=== PATIENT | male | born 1975 | race Caucasian/White ===

== ENCOUNTER 2021-05-06 09:42 | Emergency (ER) | payer MEDICAID, SELFPAY ==
--- NOTE | 2021-05-06 09:46 | USCV_ITS ---
NessaMiki Age: 45 Gender: M : 1975 Exam Date: 05/06/2021 09:52 Ordering Phys: Darling Toussaint Technologist: Elisa Singh [place] [facility] [place]: LLE PAIN AND SWELLING HISTORY: History of deep venous thrombosis. Pt is taking blood thinners for a few months now. PROCEDURES: Venous duplex imaging was performed in only the left lower extremity. The following venous structures were evaluated: common femoral vein, profunda vein, proximal portion of the greater saphenous vein, superficial femoral vein, and the popliteal vein. In addition, the posterior tibial and peroneal trunk were evaluated. FINDINGS: There appears to be partial thrombus present in the Lt SFV prox, mid, and distal, the Lt popliteal and peroneals. All other veins imaged appear compressible and free of thrombus at this time. CONCLUSIONS Partial non occlusive thrombus Left SFV, popliteal and peroneal veins. History of prior thrombus. Remainder of LLE veins are patent 2.6cm lymph node proximal left thigh, non specific but may be reactive. James Monsivais MD (Electronically Signed) Final Date: 06 May 2021 17:33 S
[2021-05-06 10:58] VITALS: BP 132/70; PULSE 62; RESP 14; TEMP 36.4; O2SAT 99; BMI 26.4
[2021-05-06 11:34] VITALS: BP 146/89; PULSE 84; RESP 16; O2SAT 97
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
[2021-05-06 12:02] VITALS: BP 124/76; PULSE 73; RESP 18; O2SAT 99
== END 2021-05-06 14:43 | disposition home or self-care (01) ==
PROVIDERS: Emergency Provider Physician Assistant
DX: F17.210 Nicotine dependence, cigarettes, uncomplicated (principal); M79.605 Pain in left leg
CPT/HCPCS: 93971; 99283

== ENCOUNTER 2022-06-27 09:07 | Inpatient (IN) | payer MEDICAID, SELFPAY ==
[2022-06-27] VITALS (10 sets, daily range): BP systolic 94–131; BP diastolic 62–87; PULSE 52–74; RESP 16–20; TEMP 36.5–37; O2SAT 92–99; BMI 32.5
--- NOTE | 2022-06-27 09:16 | ECG_ITS ---
[facility] Test Date: 2022-06-27 Pat Name: Miki Szymanski Department: Room: Gender: Male [employer] Coordinator: : 1975 Requested By: Joann Whittaker Order Number: [id number] Gisell MD: Alfonso Saldivar M.D. Measurements Intervals [place] Rate: 76 P: 25 NV: 144 QRS: 40 QRSD: 102 T: 45 QT: 384 QTc: 432 Interpretive Statements SINUS RHYTHM No previous ECG available for comparison Electronically Signed On 06-27-2022 14:38:28 [employer] by Alfonso Saldivar M.D. [id number]
[2022-06-27 09:25] LABS: Add Urine Microscopic? NO; Charge for UA Resulting for Rev
[2022-06-27 09:29] LABS: Basophils # 0.1 10^3/uL (0.0-0.1); Basophils % 0.6 %; Eosinophils # 0.5 10^3/uL (0.0-0.8); Eosinophils % 4.7 %; Hematocrit 42.4 % (42.0-52.0); Lymphocytes # 2.4 10^3/uL (0.8-4.8); Lymphocytes % 25.3 %; Mean Corpuscular Hemoglobin 35.2 pg (28.0-34.0); Mean Corpuscular Volume 106.5 fl (80-94); Monocytes # 0.9 10^3/uL (0.2-0.9); Neutrophils # 5.68 10^3/uL (1.8-7.7); Neutrophils % 59.9 %; Nucleated Red Blood Cells % 0 %; Platelet Count 192 10^3/cmm (130-400); Red Blood Count 3.98 10^6/uL (4.1-5.3); Red Cell Distribution Width 16.4 % (12.1-15.1); White Blood Count 9.5 10^3/uL (4.0-10.0)
[2022-06-27] MEDS: sodium chloride 0.9% 1,000 ML 999 ML IV (09:32)
--- NOTE | 2022-06-27 09:32 | ED_ITS ---
Documented by User: CITLALI Hughes 06/28/22 07:14 HPI - Altered Mental Status General: Chief Complaint: Altered Mental Status Stated Complaint: AMS Time Seen by Provider: 06/27/22 09:17 History of Present Illness: Patient is a 47-year-old male that comes to the ED via EMS for altered mental status. Patient was at [facility] and going through alcohol detox. He started his detox at [facility] 4 days ago on June 23. For the past couple days he has been having a lot of anxiety, hand tremors, panic attacks, diaphoresis, nausea/vomiting, confusion and visual hallucinations. Patient says he keeps seeing little green men. He also reports having a difficult time controlling his arms and legs. Denies any seizure activity. He states he has a history of alcohol abuse and has been drinking for a little over 30 years. He drinks over 1/5 of whiskey a day. He denies any history of DTs or any seizures during past detox episodes. He states that this detox episode is the worst he has experienced. Denies any SI or HI. Ambulance started patient on fluids and given a dose of Zofran while in route to the ED. Associated symptoms: Reports visual hallucinations; Deny homicidal ideation or suicidal ideation Review of Systems Const: Reports: night sweats and diaphoresis; Denies: fever(s), chills or fatigue Eyes: Denies: change in vision or eye discomfort ENMT: Denies: throat pain, odynophagia, nasal discharge or nasal congestion Card: Denies: chest pain, palpitations, edema, swelling of feet/ankles, dyspnea on exertion or orthopnea Resp: Denies: dyspnea, productive cough or non-productive cough GI: Reports: nausea and vomiting; Denies: abdominal pain, diarrhea, constipation or hematochezia : Denies: flank pain, difficulty urinating, dysuria or hematuria Musc: Denies: neck pain, back pain or extremity swelling Skin/Breast: Denies: rash or new lesions Neuro: Denies: headache(s), numbness in extremities or weakness in extremities Psych: Reports: anxiety and visual hallucinations; Denies: suicidal ideation or homicidal ideation [facility] ED PFSH: Medical History Alcohol abuse COPD (chronic obstructive pulmonary disease) Depression DVT (deep venous thrombosis) GERD (gastroesophageal reflux disease) Hyperlipidemia Hypertension No pertinent family history Family History Other Cancer Social History Smoking and tobacco status: current every day smoker Alcohol intake: current Physical Exam Const: COMMON NORMALS: alert ORIENTATION/CONSCIOUSNESS: Yes oriented to person and Yes oriented to place HENMT: COMMON NORMALS: normocephalic HEAD & SCALP: normocephalic MOUTH: Normal oral and palatal mucosa present THROAT: posterior oropharynx normal and uvula midline Eye: COMMON NORMALS: Equal, round and reactive pupils present and EOMs intact bilaterally GENERAL EYE: appearance normal, both eyes and all related structures PUPIL: Yes Equal, round and reactive pupils present Neck/C-Spine: COMMON NORMALS: supple GENERAL: Yes normal visual inspection Lymph: LYMPHATIC: no lymphadenopathy noted Resp: COMMON NORMALS: normal respiratory effort, No retractions, No use of accessory muscles and clear to auscultation bilaterally AUSCULTATION: clear to auscultation bilaterally Cardio: COMMON NORMALS: regular rate, regular rhythm, S1 normal heart sound present, S2 normal heart sound present, No gallops present (Cardio), No clicks present (Cardio), No murmurs present (Cardio) and Peripheral pulses 2+ throughout RATE: regular rate RHYTHM: regular rhythm HEART SOUNDS: S1 normal heart sound present and S2 normal heart sound present PERIPHERAL PULSES: Peripheral pulses 2+ throughout GI: COMMON NORMALS: Normal to inspection, nondistended, normoactive bowel sounds present, Soft to palpation, non-tender and no masses PALPATION: Yes Soft to palpation : COMMON NORMALS: Yes no CVA tenderness BLADDER/KIDNEY EXAM: Yes no CVA tenderness Back/Pelvis: COMMON NORMALS: no CVA tenderness Extremity: GENERAL: Yes normal exam except as noted Neuro: COMMON NORMALS: moves all extremities SENSORIUM/ORIENTATION: Yes alert, Yes oriented to person, Yes oriented to place and Yes Orientation impaired (Patient had trouble answering time questions.) Psych: THOUGHT CONTENT: Yes Hallucination(s) present visual (He sees little green men) Skin: COMMON NORMALS: no rashes or lesions noted GENERAL SKIN EXAM: no rashes or lesions noted and dry skin Course Vital Signs: Vital signs: Vital Signs Temperature 97.4 F L 06/28/22 11:11 Pulse Rate 79 06/28/22 11:11 Respiratory Rate 18 06/28/22 11:11 Blood Pressure 117/68 06/28/22 11:11 Pulse Oximetry 96 06/28/22 11:11 Oxygen Delivery Me thod 06/28/22 10:14 MDM - Altered Mental Status Medical Decision Making Patient is a 47-year-old male who comes to the ED via EMS from [facility] for altered mental status. Patient is currently going through alcohol detox and has not had any alcohol for the past 4 days. He is complaining of having alcohol withdrawal symptoms including visual hallucinations. Denies any seizures and no past history of DTs. Vitals are stable. During exam patient talks about seeing little green men. Rest of exam is benign. Head CT showed no acute findings. Blood alcohol level is 0. CBC and CMP were unremarkable. Urine drug screen was positive for benzos but no other drugs. I talked with Dr. Gambino about patient possible admission to hospital and he came down and saw the patient. He felt patient was stable enough for admission to the [facility], so I contacted Dr. Tapia and discussed patient case with him and he accepted admission of pt to the NPU. Dr. Cheng notified and placed the admitting orders Lab Data I reviewed the patient's lab results. 06/27/22 09:12 06/27/22 09:[address] 06/27/22 09:40 IMPRESSION: 1. No acute intracranial hemorrhage or edema. 2. Mild atrophy and small vessel ischemic disease. Chest X-Ray 06/27/22 10:36 IMPRESSION: Nonspecific interstitial/ground-glass opacities left lower lung zone as discussed above. Laboratory Results WBC 9.5 10^3/uL (4.0-10.0) 06/27/22 09:12 RBC 3.98 10^6/uL (4.1-5.3) L 06/27/22 09:12 Hgb 14.0 g/dL (11.7-16.6) 06/27/22 09:12 Hct 42.4 % (42.0-52.0) 06/27/22 09:12 MCV 106.5 fl (80-94) H 06/27/22 09:12 MCH 35.2 pg (28.0-34.0) H 06/27/22 09:12 MCHC 33.0 g/dL (30.0-36.0) 06/27/22 09:12 RDW 16.4 % (12.1-15.1) H 06/27/22 09:12 Plt Count 192 10^3/cmm (130-400) 06/27/22 09:12 MPV 11.0 fL (7.4-10.4) H 06/27/22 09:12 Neut % (Auto) 59.9 % 06/27/22 09:12 Lymph % (Auto) 25.3 % 06/27/22 09:12 Christian % (Auto) 9.0 % 06/27/22 09:12 Eos % (Auto) 4.7 % 06/27/22 09:12 Baso % (Auto) 0.6 % 06/27/22 09:12 Neut # (Auto) 5.68 10^3/uL (1.8-7.7) 06/27/22 09:12 Lymph # (Auto) 2.4 10^3/uL (0.8-4.8) 06/27/22 09:12 Christian # (Auto) 0.9 10^3/uL (0.2-0.9) 06/27/22 09:12 Eos # (Auto) 0.5 10^3/uL (0.0-0.8) 06/27/22 09:12 Baso # (Auto) 0.1 10^3/uL (0.0-0.1) 06/27/22 09:12 Nucleated RBC % (auto) 0 % 06/27/22 09:12 Nucleated RBCs # 0.0 /100WBC 06/27/22 09:12 Sodium 139 mmol/L (136-145) 06/27/22 09:12 Potassium 3.9 mmol/L (3.5-5.1) 06/27/22 09:12 Chloride 107 mmol/L (98-107) 06/27/22 09:12 Carbon Dioxide 19 mmol/L (22-29) L 06/27/22 09:12 Anion Gap 16.9 (5-19) 06/27/22 09:12 BUN 6 mg/dL (6-20) 06/27/22 09:12 Creatinine 0.9 mg/dL (0.7-1.2) 06/27/22 09:12 GFR Calculation 90.1 mL/min (90-130) 06/27/22 09:12 Glucose 132 mg/dL (65-115) H 06/27/22 09:12 Calculated Osmolality 287 mOsm/kg (285-295) 06/27/22 09:12 Calcium 9.5 mg/dL (8.5-10.5) 06/27/22 09:12 Total Bilirubin 0.2 mg/dL (0.15-1.2) 06/27/22 09:12 AST 21 U/L (0-40) 06/27/22 09:12 ALT 17 U/L (0-41) 06/27/22 09:12 Alkaline Phosphatase 78 U/L (40-130) 06/27/22 09:12 Total Protein 7.1 g/dL (6.6-8.7) 06/27/22 09:12 Albumin 3.8 g/dL (3.5-5.2) 06/27/22 09:12 Globulin 3.3 g/dL (1.3-4.6) 06/27/22 09:12 Urine Color Yellow (Yellow) 06/27/22 09:18 Urine Appearance Clear (CLEAR) 06/27/22 09:18 Urine pH 6 (5-7) 06/27/22 09:18 Ur Specific [place] 1.010 (1.005-1.030) 06/27/22 09:18 Urine Protein Neg (Negative) 06/27/22 09:18 Urine Glucose (UA) Norm (Normal) 06/27/22 09:18 Urine Ketones Negative (Negative) 06/27/22 09:18 Urine Blood Neg (Negative) 06/27/22 09:18 Urine Nitrate Negative (Negative) 06/27/22 09:18 Urine Bilirubin Neg (Negative) 06/27/22 09:18 Urine Urobilinogen Neg mg/dL (Negative) 06/27/22 09:18 Ur Leukocyte Esterase Negative (Negative) 06/27/22 09:18 Urine Opiates Screen Negative ng/mL (Negative) 06/27/22 09:18 Ur Barbiturates Screen Negative ng/mL (Negative) 06/27/22 09:18 Ur Phencyclidine Scrn Negative ng/mL (Negative) 06/27/22 09:18 Ur Amphetamines Screen Negative ng/mL (Negative) 06/27/22 09:18 U Benzodiazepines Scrn Positive ng/mL (Negative) H 06/27/22 09:18 Urine Cocaine Screen Negative ng/mL (Negative) 06/27/22 09:18 U Marijuana (THC) Screen Negative ng/mL (Negative) 06/27/22 09:18 Ethyl Alcohol < 10 mg/dL (0-10) 06/27/22 09:12 Discharge Plan Discharge Patient Disposition: Admitted As Inpatient Admit Provider: Krystian Tapia Clinical Impression: Altered mental status, Alcohol withdrawal, Hallucination, visual Condition: Stable Discharge Diet: Usual diet Discharge Activity: Resume usual activity Coding Level of Care Code ED Aircraft Cleaning Supervisor for Chg Fwd Exam Comprehensive Documented by User: Nikko Cheng MD 07/07/22 20:24 HPI - Altered Mental Status General: Chief Complaint: Altered Mental Status Stated Complaint: AMS Time Seen by Provider: 06/27/22 09:17 [facility] ED PFSH: Medical History Alcohol abuse COPD (chronic obstructive pulmonary disease) Depression DVT (deep venous thrombosis) GERD (gastroesophageal reflux disease) Hyperlipidemia Hypertension No pertinent family history Family History Other Cancer Social History Smoking and tobacco status: current every day smoker Alcohol intake: current Course Vital Signs: Vital signs: Vital Signs Temperature 97.4 F L 06/28/22 11:11 Pulse Rate 79 06/28/22 11:11 Respiratory Rate 18 06/28/22 11:11 Blood Pressure 117/68 06/28/22 11:11 Pulse Oximetry 96 06/28/22 11:11 Oxygen Delivery Me thod 06/28/22 10:14 MDM - Altered Mental Status Medical Decision Making Patient is a 47-year-old male who comes to the ED via EMS from [facility] for altered mental status. Patient is currently going through alcohol detox and has not had any alcohol for the past 4 days. He is complaining of having alcohol withdrawal symptoms including visual hallucinations. Denies any seizures and no past history of DTs. Vitals are stable. During exam patient talks about seeing little green men. Rest of exam is benign. Head CT showed no acute findings. Blood alcohol level is 0. CBC and CMP were unremarkable. Urine drug screen was positive for benzos but no other drugs. I talked with Dr. Gambino about patient possible admission to hospital and he came down and saw the patient. He felt patient was stable enough for admission to the [facility], so I contacted Dr. Tapia and discussed patient case with him and he accepted admission of pt to the NPU. Dr. Cheng notified and placed the admitting orders I discussed this case with CITLALI Hughes. I have reviewed documentation. I reviewed laboratory studies as well as imaging. Nikko Cheng MD Emergency Medicine Lab Data 06/27/22 09:12 06/27/22 09:[address] 06/27/22 09:40 IMPRESSION: 1. No acute intracranial hemorrhage or edema. 2. Mild atrophy and small vessel ischemic disease. Chest X-Ray 06/27/22 10:36 IMPRESSION: Nonspecific interstitial/ground-glass opacities left lower lung zone as discussed above. Laboratory Results WBC 9.5 10^3/uL (4.0-10.0) 06/27/22 09:12 RBC 3.98 10^6/uL (4.1-5.3) L 06/27/22 09:12 Hgb 14.0 g/dL (11.7-16.6) 06/27/22 09:12 Hct 42.4 % (42.0-52.0) 06/27/22 09:12 MCV 106.5 fl (80-94) H 06/27/22 09:12 MCH 35.2 pg (28.0-34.0) H 06/27/22 09:12 MCHC 33.0 g/dL (30.0-36.0) 06/27/22 09:12 RDW 16.4 % (12.1-15.1) H 06/27/22 09:12 Plt Count 192 10^3/cmm (130-400) 06/27/22 09:12 MPV 11.0 fL (7.4-10.4) H 06/27/22 09:12 Neut % (Auto) 59.9 % 06/27/22 09:12 Lymph % (Auto) 25.3 % 06/27/22 09:12 Christian % (Auto) 9.0 % 06/27/22 09:12 Eos % (Auto) 4.7 % 06/27/22 09:12 Baso % (Auto) 0.6 % 06/27/22 09:12 Neut # (Auto) 5.68 10^3/uL (1.8-7.7) 06/27/22 09:12 Lymph # (Auto) 2.4 10^3/uL (0.8-4.8) 06/27/22 09:12 Christian # (Auto) 0.9 10^3/uL (0.2-0.9) 06/27/22 09:12 Eos # (Auto) 0.5 10^3/uL (0.0-0.8) 06/27/22 09:12 Baso # (Auto) 0.1 10^3/uL (0.0-0.1) 06/27/22 09:12 Nucleated RBC % (auto) 0 % 06/27/22 09:12 Nucleated RBCs # 0.0 /100WBC 06/27/22 09:12 Sodium 139 mmol/L (136-145) 06/27/22 09:12 Potassium 3.9 mmol/L (3.5-5.1) 06/27/22 09:12 Chloride 107 mmol/L (98-107) 06/27/22 09:12 Carbon Dioxide 19 mmol/L (22-29) L 06/27/22 09:12 Anion Gap 16.9 (5-19) 06/27/22 09:12 BUN 6 mg/dL (6-20) 06/27/22 09:12 Creatinine 0.9 mg/dL (0.7-1.2) 06/27/22 09:12 GFR Calculation 90.1 mL/min (90-130) 06/27/22 09:12 Glucose 132 mg/dL (65-115) H 06/27/22 09:12 Calculated Osmolality 287 mOsm/kg (285-295) 06/27/22 09:12 Calcium 9.5 mg/dL (8.5-10.5) 06/27/22 09:12 Total Bilirubin 0.2 mg/dL (0.15-1.2) 06/27/22 09:12 AST 21 U/L (0-40) 06/27/22 09:12 ALT 17 U/L (0-41) 06/27/22 09:12 Alkaline Phosphatase 78 U/L (40-130) 06/27/22 09:12 Total Protein 7.1 g/dL (6.6-8.7) 06/27/22 09:12 Albumin 3.8 g/dL (3.5-5.2) 06/27/22 09:12 Globulin 3.3 g/dL (1.3-4.6) 06/27/22 09:12 Urine Color Yellow (Yellow) 06/27/22 09:18 Urine Appearance Clear (CLEAR) 06/27/22 09:18 Urine pH 6 (5-7) 06/27/22 09:18 Ur Specific [place] 1.010 (1.005-1.030) 06/27/22 09:18 Urine Protein Neg (Negative) 06/27/22 09:18 Urine Glucose (UA) Norm (Normal) 06/27/22 09:18 Urine Ketones Negative (Negative) 06/27/22 09:18 Urine Blood Neg (Negative) 06/27/22 09:18 Urine Nitrate Negative (Negative) 06/27/22 09:18 Urine Bilirubin Neg (Negative) 06/27/22 09:18 Urine Urobilinogen Neg mg/dL (Negative) 06/27/22 09:18 Ur Leukocyte Esterase Negative (Negative) 06/27/22 09:18 Urine Opiates Screen Negative ng/mL (Negative) 06/27/22 09:18 Ur Barbiturates Screen Negative ng/mL (Negative) 06/27/22 09:18 Ur Phencyclidine Scrn Negative ng/mL (Negative) 06/27/22 09:18 Ur Amphetamines Screen Negative ng/mL (Negative) 06/27/22 09:18 U Benzodiazepines Scrn Positive ng/mL (Negative) H 06/27/22 09:18 Urine Cocaine Screen Negative ng/mL (Negative) 06/27/22 09:18 U Marijuana (THC) Screen Negative ng/mL (Negative) 06/27/22 09:18 Ethyl Alcohol < 10 mg/dL (0-10) 06/27/22 09:12 Discharge Plan Discharge Patient Disposition: Admitted As Inpatient Admit Provider: Krystian Tapia Clinical Impression: Altered mental status, Alcohol withdrawal, Hallucination, visual Condition: Stable Discharge Diet: Usual diet Discharge Activity: Resume usual activity Coding Level of Care Code ED Aircraft Cleaning Supervisor for Justyng Fwd Exam Comprehensive
[2022-06-27 09:33] LABS: Bilirubin Urine Neg (Negative); Blood Urine Neg (Negative); Glucose Urine UA Norm (Normal); Ketones Urine Negative (Negative); Leukocyte Esterase Urine Negative (Negative); Nitrate Urine Negative (Negative); Protein Urine Neg (Negative); Urine Appearance Clear (CLEAR); Urine Color Yellow (Yellow); Urobilinogen Urine Neg (Negative); pH Urine 6 (5-7)
[2022-06-27] MEDS: LORazepam 2 mg/mL INJ 1 mL IVP (09:36)
--- NOTE | 2022-06-27 09:40 | CT_ITS ---
WS: [id number] CT HEAD NONCONTRAST HISTORY: confusion, AMS TECHNIQUE: Contiguous axial imaging performed through the brain in 2.5 mm imaging. Bone and soft tiss ue windows. Sagittal and coronal reformats reviewed. All CT scans at [facility] use at least one of these dose optimization techniques: automated exposure control; mA and/or kV adjustment per pa tient size (includes targeted exams where dose is matched to clinical indication); or iterative recon struction. DLP: 2158.28 mGy.cm COMPARISON: None available. No acute intracranial hemorrhage, midline shift or mass effect. Very minimal atrophy and small vessel ischemic disease. No prior infarcts. Ventricles: Normal size with no hydrocephalus. No inferior displacement of cerebellar tonsils. Paranasal sinuses: Moderate mucoperiosteal thickening involving the ethmoid sinuses bilaterally and t he RIGHT sphenoid sinus. No air-fluid levels. Mastoid air cells: Well pneumatized. Calvarium and scalp: Skull is intact with no soft tissue edema or swelling. CT/CT head wo con* [id number] IMPRESSION: 1. No acute intracranial hemorrhage or edema. 2. Mild atrophy and small vessel ischemic disease.
--- NOTE | 2022-06-27 09:40 | PC.NURSE ---
PATIENT ASKS NURSE IF SHE CAN SEE THE LITTLE GREEN MEN. NURSE REORIENTS PATIENT THAT HE IS IN THE HOSPITAL AND EDUCATES ON THE EFFECTS OF DETOXIFICATION. PATIENT STATES THAT HE THINKS ALL OF YOU ARE ALIENS.
[2022-06-27 09:43] LABS: Alanine Aminotransferase 17 U/L (0-41); Albumin Level 3.8 g/dL (3.5-5.2); Alkaline Phosphatase 78 U/L (40-130); Anion Gap 16.9 (5-19); Aspartate Amino Transferase 21 U/L (0-40); Blood Urea Nitrogen 6 mg/dL (6-20); Calcium 9.5 mg/dL (8.5-10.5); Carbon Dioxide 19 mmol/L (22-29); Chloride 107 mmol/L (98-107); Globulin 3.3 g/dL (1.3-4.6); Glomerular Filtration Rate 90.1 mL/min (90-130); Glucose 132 mg/dL (65-115); Osmolality Calculated 287 mOsm/kg (285-295); Potassium 3.9 mmol/L (3.5-5.1); Sodium 139 mmol/L (136-145); Total Bilirubin 0.2 mg/dL (0.15-1.2); Total Protein 7.1 g/dL (6.6-8.7)
[2022-06-27 09:44] LABS: Alcohol Level < 10 mg/dL (0-10)
[2022-06-27 09:49] LABS: Amphetamines Screen Urine Negative (Negative); Barbiturates Screen Urine Negative (Negative); Benzodiazepines Screen Urine Positive (Negative); Cocaine Screen Urine Negative (Negative); Opiate Screen Urine Negative (Negative); PCP Screen Urine Negative (Negative); THC Screen Urine Negative (Negative)
--- NOTE | 2022-06-27 10:36 | XRR_ITS ---
PROCEDURE INFORMATION: Exam: XR Chest Exam date and time: 06/27/2022 10:45 AM Age: 47 years old Clinical indication: Patient HX: History--ams, unable to give HX but states that he has an issue with alcohol TECHNIQUE: Imaging protocol: Radiologic exam of the chest. Views: 1 view. COMPARISON: No relevant prior studies available. FINDINGS: Lungs: Lung volumes are somewhat decreased. There are mild interstitial/ground-glass opacities projecting peripherally over the left lower lung zone with minimal interstitial changes right lung base. Findings may represent atypical pattern of idiopathic interstitial lung disease which would be better assessed on CT. Remaining lung palmer are essentially clear. Pleural spaces: Unremarkable. No pleural effusion. No pneumothorax. Heart/Mediastinum: Cardiac silhouette appears borderline enlarged on this portable chest. Bones/joints: Unremarkable for age. XR/XR chest 1V portable [id number] IMPRESSION: Nonspecific interstitial/ground-glass opacities left lower lung zone as discussed above.
[2022-06-27] MEDS: sodium chloride 0.9% 500 ML 999 ML IV (10:50)
[2022-06-27] MEDS: metoclopramide 5 mg/mL SDV 2 mL 10 MG IVP (10:51)
--- NOTE | 2022-06-27 12:44 | P.CONIM_ITS ---
Providers/Reason For Consult Consulting Physician/Specialty*: Ceasar Gambino MD Reason for Consult*: Withdrawal, Medical problems History of Present Illness History of Present Illness Miki Szymanski is a 47 year old male presenting to the emergency department from [facility] for he has been at rehabilitation the last 4 days. He reports his last drink was 4 to 5 days ago. He was a little irritated upon arriving at the rehabilitation facility, that he did not receive medical detox as he expected. He reports they have given him some medicine, such as chlordiazepoxide but he was expecting more. He has been seeing little green men in the periphery of his vision. He states he has been nauseated and thought he might be dehydrated. He reports he is feeling a little bit better currently but was still seeing things when he came into the emergency department. He has been able to drink fluid without difficulty in the emergency department and has received some IV fluids as well. He states he has had occasional blood in his stool, with bowel movement or wiping and recently stopped his anticoagulant secondary to this. He states he was on Eliquis, for history of DVT in his leg. Distant ultrasound in our system demonstrated a partially nonocclusive DVT in 2020. Head CT and chest x-ray were performed today, with no significant findings. Laboratory did not show any significant anemia, or significant organ dysfunction. He reports no pain currently. Review of Systems General: Reports: 10 or more systems reviewed and unremarkable except in HPI and below Const: Denies: fever(s) or chills Eyes: Denies: change in vision ENMT: Denies: throat pain Card: Denies: chest pain Resp: Denies: dyspnea GI: Reports: hematochezia : Denies: flank pain Musc: Denies: neck pain Skin/Breast: Denies: rash Neuro: Denies: headache(s) Psych: Reports: anxiety, depression and visual hallucinations Endo: Denies: polyuria Benito/Lymph: Denies: easy bruising All/Imm: Denies: urticaria Medications/Allergies Home Medications Medication Instructions Recorded Confirmed Last Taken Type duloxetine 60 mg capsule,delayed 60 mg PO DAILY 04/15/21 06/27/22 Unknown History release pantoprazole 40 mg tablet,delayed 40 mg PO DAILY 04/15/21 06/27/22 06/27/22 History release acetaminophen 325 mg tablet 650 mg PO QID PRN Pain 06/27/22 06/27/22 06/27/22 History budesonide-formoterol HFA 160 2 puff inhalation BID 06/27/22 06/27/22 06/27/22 History mcg-4.5 mcg/actuation aerosol inhaler (Symbicort) chlordiazepoxide HCl 25 mg capsule 25 mg PO TID 06/27/22 06/27/22 06/27/22 History clonidine HCl 0.1 mg tablet 0.1 mg PO BID PRN Anxiety 06/27/22 06/27/22 06/27/22 History ergocalciferol (vitamin D2) 1,250 50,000 unit PO DAILY 06/27/22 06/27/22 Unknown History mcg (50,000 unit) capsule escitalopram oxalate 5 mg tablet 5 mg PO DAILY 06/27/22 06/27/22 06/27/22 History gabapentin 300 mg capsule 600 mg PO TID 06/27/22 06/27/22 06/27/22 History hydroxyzine pamoate 50 mg capsule 50 mg PO TID PRN Anxiety 06/27/22 06/27/22 06/27/22 History levocetirizine 5 mg tablet 5 mg PO DAILY PRN Allergy Symptoms 06/27/22 06/27/22 Unknown History menthol 3.2 mg lozenges 6.4 mg mucous membrane Q4H PRN 06/27/22 06/27/22 06/27/22 History Sore Throat ondansetron 8 mg disintegrating 8 mg PO Q8H PRN Nausea 06/27/22 06/27/22 06/27/22 History tablet quetiapine 50 mg tablet 50 - 100 mg PO BEDTIME PRN Sleep 06/27/22 06/27/22 06/26/22 History simvastatin 40 mg tablet 40 mg PO BEDTIME 06/27/22 06/27/22 06/26/22 History Allergies Allergy/AdvReac Type Severity Reaction Status Date / Time No Known Allergies Allergy Verified 06/27/22 10:54 PFSH Acute PFSH: Medical History (Updated 06/27/22 @ 14:56 by Ceasar Gambino MD) Alcohol abuse COPD (chronic obstructive pulmonary disease) Depression DVT (deep venous thrombosis) GERD (gastroesophageal reflux disease) Hyperlipidemia Hypertension No pertinent family history Family History (Updated 06/27/22 @ 13:47 by Ceasar Gambino MD) Other Cancer Social History (Updated 06/27/22 @ 13:47 by Ceasar Gambino MD) Smoking and tobacco status: current every day smoker Alcohol intake: current Substance/Drug Use: current Substance/Drug use type: Marijuana Other PFSH information: Supplemental PFSH Information: Denies surgical history. Vitals/I&O/Wt Last Vital Signs Temp 98.1 F 06/27/22 09:22 Pulse 52 L 06/27/22 11:35 Resp 16 06/27/22 11:35 BP 94/62 06/27/22 11:35 Pulse Ox 96 06/27/22 11:35 O2 Del Method 06/27/22 11:35 06/26/22 06/27/22 06/27/22 22:59 06:59 14:59 Intake Total 1500 / 1500 Balance 1500 / 1500 Weight last 48 hrs Weight 108.862 kg Physical Exam Narrative: White male, responsive, with a tremor in his right upper extremity but left upper extremity is not as tremulous and he can grab a cup, drink from it, and handed back without too much difficulty. HEENT: Atraumatic and normocephalic. Oropharynx clear Neck is supple no lymphadenopathy thyromegaly Cardiovascular regular rate and rhythm without murmur. No evidence of tachycardia Lungs clear no wheezing or crackles Abdomen is soft with positive bowel sounds. No obvious organomegaly exams deferred Extremities no cyanosis clubbing or edema, cap refill brisk Skin no rash Neuro no obvious focal deficits. Data 06/27/22 09:12 06/27/22 09:12 A&P Assessment and plan (1) Hallucination, visual: This may be a manifestation of the patient's withdrawal. However, he is now 4 days past his last alcoholic drink. His vital signs are normal. His tremor of his left upper extremity abates with handling a cup CT head was performed which demonstrated no acute changes (2) Alcohol withdrawal: Mild symptoms currently Continue Librium, taper as tolerated [facility] protocol Psychiatry is admitting for continued treatment Encourage hydration (3) DVT (deep venous thrombosis): Patient with history of extensive DVT in the past. He reports he was on Eliquis until several days ago when it was stopped as he noticed occasional blood in his stool when wiping. Would resume his Eliquis at lower dose 2.5 mg twice daily starting tomorrow and if significant blood in stool occurs, reevaluate (4) Hematochezia: Patient reports only blood in stool, small amount, when wiping. Never passes blood alone. Hemoglobin is normal Consider outpatient colonoscopy Plan Other medical problems as outlined in his past medical history. Continue his multiple other home medications Thank you for this consultation I will sign off, but please call for any questions. Consult Attestations Medical Necessity Statement: As per primary Coding Level of Care Code Acute Code for [facility] Fwd Diagnoses Hallucination, visual R44.1 Alcohol withdrawal F10.939 DVT (deep venous thrombosis) I82.409 Hematochezia K92.1
[2022-06-27] MEDS: chlordiazePOXIDE 25 mg Capsule PO ×2 (14:53→20:22)
[2022-06-27] MEDS: hyDROXYzine 25 mg Capsule 50 MG PO (14:59)
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
[2022-06-27] MEDS: quetiapine 100 mg Tablet PO (20:22)
[2022-06-27] MEDS: gabapentin 300 mg Capsule 600 MG PO (20:22)
[2022-06-27] MEDS: atorvastatin 40 mg Tablet 20 MG PO (20:22)
[2022-06-27] MEDS: acetaminophen 325 mg Tablet 650 MG PO (21:00)
[2022-06-27] MEDS: LORazepam 2 mg Tablet PO (21:01)
[2022-06-28] MEDS: LORazepam 2 mg Tablet PO (00:50)
[2022-06-28] MEDS: acetaminophen 325 mg Tablet 650 MG PO ×2 (00:54→06:55)
[2022-06-28] MEDS: gabapentin 300 mg Capsule 600 MG PO (09:02)
[2022-06-28] MEDS: chlordiazePOXIDE 25 mg Capsule PO (09:02)
[2022-06-28] MEDS: apixaban 5 mg Tablet 2.5 MG PO (09:02)
[2022-06-28] MEDS: pantoprazole DR 40 mg Tablet PO (09:02)
[2022-06-28] MEDS: thiamine 100 mg Tablet PO (09:03)
[2022-06-28] MEDS: multivitamin therapeutic Tablet 1 TAB PO (09:03)
[2022-06-28] MEDS: escitalopram 10 mg Tablet PO (09:03)
[2022-06-28] MEDS: folic acid 1 mg Tablet PO (09:03)
[2022-06-28] MEDS: nicotine 21 mg Patch 1 PATCH TRANSDERMA (09:08)
[2022-06-28] MEDS: budesonide 0.5 mg/2 mL Neb INHALATION (10:13)
[2022-06-28 10:14] VITALS: PULSE 61; RESP 16; O2SAT 97
[2022-06-28 10:15] VITALS: PULSE 60
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
[2022-06-28 11:11] VITALS: BP 117/68; PULSE 79; RESP 18; TEMP 36.3; O2SAT 96
--- NOTE | 2022-06-30 09:14 | PC.OT ---
OT EVALUATION ORDERS RECEIVED. PATIENT D/C BEFORE EVALUATION COULD BE COMPLETED.
== END 2022-06-28 11:57 | disposition home or self-care (01) | DRG 897 ==
LOC: ER 12:28 → NP 13:20
PROVIDERS: Admitting Provider Psychiatry & Neurology Psychiatry; Emergency Provider Physician Assistant; Visit Provider Psychiatry & Neurology Psychiatry
DX: F10.239 Alcohol dependence with withdrawal, unspecified (principal); G25.2 Other specified forms of tremor; F10.280 Alcohol dependence with alcohol-induced anxiety disorder; Z86.718 Personal history of other venous thrombosis and embolism; J44.9 Chronic obstructive pulmonary disease, unspecified; F32.A Depression, unspecified; K21.9 Gastro-esophageal reflux disease without esophagitis; E78.5 Hyperlipidemia, unspecified; I10 Essential (primary) hypertension; F17.200 Nicotine dependence, unspecified, uncomplicated; F12.90 Cannabis use, unspecified, uncomplicated; F41.0 Panic disorder [episodic paroxysmal anxiety]; Z81.3 Family history of other psychoactive substance abuse and dependence
CPT/HCPCS: 70450; 71045; 80053; 80306; 80307; 81003; 85025; 93005; 94640; 96374; 96375; 99285; J2060; J2765; J3411; J7030; J7040; J7626

== ENCOUNTER 2022-07-01 15:21 | Emergency (ER) | payer MEDICAID, SELFPAY ==
--- NOTE | 2022-07-01 15:24 | ED_ITS ---
HPI - Extremity Problem General: Chief complaint: Extremity Problem,Nontraumatic Stated complaint: Left leg swelling, pain Time Seen by Provider: 07/01/22 15:23 History of Present Illness: Mr. Szymanski is a 47-year-old gentleman with significant past medical history of alcohol use and left lower extremity DVT presenting to the emergency department due to leg pain and swelling. He reports being at [facility] for alcohol abuse and apparently was taken off of his Eliquis approximately 1 week ago. Starting 3 days ago he noticed increased heaviness feeling worse in the left and generalized muscle aching. He has subsequently developed left lower extremity swelling and increased pain in the lower portion of his leg. Intensity is moderate to severe. Course has worsened. This feels similar to his prior DVT. He notes occasional intermittent chest discomfort and cough. Additionally a sore throat. No other specific changes in health, exacerbating, or alleviating factors identified. Onset (ago): day(s) Pain Consistency: constant Location: left and lower extremity Quality: stabbing and aching Radiation: distal Relieving factors: nothing Exacerbating factors: weight bearing, exertion and palpation Associated symptoms: Reports no associated symptoms Review of Systems General: Reports: 10 or more systems reviewed and unremarkable except in HPI and below PFSH ED PFSH: Medical History Alcohol abuse COPD (chronic obstructive pulmonary disease) Depression DVT (deep venous thrombosis) GERD (gastroesophageal reflux disease) Hyperlipidemia Hypertension No pertinent family history Family History Other Cancer Social History Smoking and tobacco status: current every day smoker Alcohol intake: current Physical Exam Const: COMMON NORMALS: alert GENERAL APPEARANCE: cooperative and well developed HENMT: COMMON NORMALS: normocephalic and atraumatic HEAD & SCALP: normocephalic and atraumatic OTHER: Mild posterior pharyngeal erythema without exudate. Mild tonsillar hypertrophy. Uvula is midline. There is no distortion of anatomy, no evidence of COMMUNITY ASSISTANT or other deep tissue infection. Eye: COMMON NORMALS: conjunctivae normal CONJUNCTIVA: Yes conjunctivae normal SCLERA: sclerae normal Neck/C-Spine: COMMON NORMALS: supple GENERAL: Yes trachea midline Resp: COMMON NORMALS: clear to auscultation bilaterally EFFORT & INSPECTION: Yes able to speak in complete sentences AUSCULTATION: clear to auscultation bilaterally Cardio: COMMON NORMALS: regular rate and regular rhythm RATE: regular rate RHYTHM: regular rhythm GI: COMMON NORMALS: Soft to palpation PALPATION: Yes Soft to palpation and No Tenderness to palpation present (GI) Extremity: NARRATIVE EXTREMITY EXAM: Left lower extremity swelling compared to contralateral side, no evidence of cellulitis. There is tenderness to palpation generally worse in the calf region. CMS is intact. GENERAL: Yes normal exam except as noted and No edema Neuro: COMMON NORMALS: moves all extremities SENSORIUM/ORIENTATION: Yes alert and No Orientation impaired Psych: COMMON NORMALS: mental status grossly normal and Normal thought process present THOUGHT PROCESS: Normal thought process present Course Vital Signs: Vital signs: Vital Signs Temperature 97.6 F 07/01/22 15:35 Pulse Rate 89 07/01/22 18:33 Respiratory Rate 18 07/01/22 18:33 Blood Pressure 129/88 07/01/22 18:33 Pulse Oximetry 99 07/01/22 18:33 MDM - Extremity (Nontraumatic) Medical Decision Making 39-year-old gentleman with history of DVT presenting with left lower extremity swelling and pain associate with other general symptoms. Exam as above. Patient is nontoxic. EKG concern sinus rhythm with nonspecific ST segment abnormalities, no STEMI.. Labs overall similar to prior recent with no leukocytosis, normal hemoglobin, normal platelet count. Metabolic panel mildly improved without significant derangement. ALT elevation of uncertain etiology per patient does not have specific right upper quadrant abdominal tenderness, this can be followed in outpatient setting. Negative rapid strep. Chest x-ray with no lobar consolidation or pneumothorax. Given patient symptomatology bibasilar findings are likely atelectasis. Ultrasound demonstrates chronic nonocclusive DVT. There is soft tissue edema however no evidence of cellulitis on physical exam. On reassessment patient proved with Toradol and Tylenol. Most likely etiology of patient symptoms is unclear, possibly edema secondary to chronic DVT in the context of recent cessation of anticoagulation. I discussed need for risk/benefit discussion with my physician and resuming anticoagulation. The results of ED evaluation were discussed with the patient including prescriptions and/or symptomatic cares (if applicable) including appropriate and responsible use, followup plan, and return precautions. The patient verbalized understanding and felt safe for discharge. Medical Records I reviewed the patient's medical records. Lab Data I reviewed the patient's lab results. 07/01/22 15:55 07/01/22 15:55 Radiology Impressions Chest X-Ray 07/01/22 15:46 IMPRESSION: Bibasilar atelectasis versus minimal infiltrate. Venous Duplex 07/01/22 15:46 IMPRESSION: 1. Suspected chronic nonocclusive popliteal vein deep venous thrombosis. 2. Subcutaneous edema in the calf. Laboratory Results WBC 8.6 10^3/uL (4.0-10.0) 07/01/22 15:55 RBC 3.89 10^6/uL (4.1-5.3) L 07/01/22 15:55 Hgb 13.5 g/dL (11.7-16.6) 07/01/22 15:55 Hct 41.0 % (42.0-52.0) L 07/01/22 15:55 MCV 105.4 fl (80-94) H 07/01/22 15:55 MCH 34.7 pg (28.0-34.0) H 07/01/22 15:55 MCHC 32.9 g/dL (30.0-36.0) 07/01/22 15:55 RDW 16.3 % (12.1-15.1) H 07/01/22 15:55 Plt Count 211 10^3/cmm (130-400) 07/01/22 15:55 MPV 10.9 fL (7.4-10.4) H 07/01/22 15:55 Neut % (Auto) 45.7 % 07/01/22 15:55 Lymph % (Auto) 32.7 % 07/01/22 15:55 [place] % (Auto) 10.5 % 07/01/22 15:55 Eos % (Auto) 9.2 % 07/01/22 15:55 Baso % (Auto) 1.0 % 07/01/22 15:55 Neut # (Auto) 3.92 10^3/uL (1.8-7.7) 07/01/22 15:55 Lymph # (Auto) 2.8 10^3/uL (0.8-4.8) 07/01/22 15:55 [place] # (Auto) 0.9 10^3/uL (0.2-0.9) 07/01/22 15:55 Eos # (Auto) 0.8 10^3/uL (0.0-0.8) 07/01/22 15:55 Baso # (Auto) 0.1 10^3/uL (0.0-0.1) 07/01/22 15:55 Nucleated RBC % (auto) 0 % 07/01/22 15:55 Nucleated RBCs # 0.0 /100WBC 07/01/22 15:55 Sodium 137 mmol/L (136-145) 07/01/22 15:55 Potassium 4.2 mmol/L (3.5-5.1) 07/01/22 15:55 Chloride 102 mmol/L (98-107) 07/01/22 15:55 Carbon Dioxide 22 mmol/L (22-29) 07/01/22 15:55 Anion Gap 17.2 (5-19) 07/01/22 15:55 BUN 6 mg/dL (6-20) 07/01/22 15:55 Creatinine 0.9 mg/dL (0.7-1.2) 07/01/22 15:55 GFR Calculation 90.1 mL/min (90-130) 07/01/22 15:55 Glucose 139 mg/dL (65-115) H 07/01/22 15:55 Calculated Osmolality 284 mOsm/kg (285-295) L 07/01/22 15:55 Calcium 9.0 mg/dL (8.5-10.5) 07/01/22 15:55 Total Bilirubin 0.2 mg/dL (0.15-1.2) 07/01/22 15:55 AST 39 U/L (0-40) 07/01/22 15:55 ALT 47 U/L (0-41) H 07/01/22 15:55 Alkaline Phosphatase 94 U/L (40-130) 07/01/22 15:55 NT-Pro-B Natriuret Pep 250 pg/mL (0-125) H 07/01/22 15:55 Total Protein 6.9 g/dL (6.6-8.7) 07/01/22 15:55 Albumin 3.9 g/dL (3.5-5.2) 07/01/22 15:55 Globulin 3.0 g/dL (1.3-4.6) 07/01/22 15:55 Group A Strep Rapid Negative (Negative) 07/01/22 16:20 Discharge Plan Discharge Patient Disposition: Home Clinical Impression: Chronic deep vein thrombosis (DVT), Leg swelling Condition: Stable Prescriptions: No Action pantoprazole 40 mg tablet,delayed release (DR/EC) 40 mg PO DAILY clonidine HCl 0.1 mg Tablet 0.1 mg PO BID PRN (Reason: Anxiety) hydroxyzine pamoate 50 mg Capsule 50 mg PO TID PRN (Reason: Anxiety) simvastatin 40 mg tablet 40 mg PO BEDTIME ondansetron 8 mg Tablet,Disintegrating 8 mg PO Q8H PRN (Reason: Nausea) gabapentin 300 mg Capsule 300 mg PO TID ergocalciferol (vitamin D2) 1,250 mcg (50,000 unit) capsule 50,000 unit PO Q7D Rx Instructions: Weekly on Mondays escitalopram oxalate 5 mg tablet 10 mg PO DAILY quetiapine 50 mg Tablet 50 - 100 mg PO BEDTIME PRN (Reason: Sleep) budesonide-formoterol [Symbicort] 160-4.5 mcg/actuation HFA aerosol inhaler 2 puff INHALATION BID levocetirizine 5 mg tablet 5 mg PO DAILY PRN (Reason: Allergy Symptoms) Eliquis 5 mg tablet 5 mg PO DAILY cephalexin 500 mg capsule 500 mg PO Q6H 7 Days Qty: 28 0RF Discharge Orders: Discharge ED (Routine); Ordered 07/01/22 Ordered By: Nikko Cheng Discharge Diet: Usual diet Discharge Activity: Increase activity as tolerated Patient Instructions: Deep Vein Thrombosis (ED), Leg Edema (ED) Activity Restrictions/Additional Instructions: Thank you for visiting the emergency department. You were seen and evaluated for leg pain and swelling. You do have evidence of chronic DVT and likely leg edema. I recommend resuming your Eliquis. As discussed this is a risk-benefit with regards to falling and other bleeding risk. Please discuss this with the physician that evaluated you at [facility]. Please continue your other medications. Elevation, compression wraps, and [id number] medications for discomfort are okay. Please use NSAIDs or other related medications cautiously due to risk of bleeding and I recommend continuing her pantoprazole if you are taking these. Please follow-up with a primary care provider. Return to the emergency department for uncontrolled symptoms or anything else that you are concerned about a feel needs emergency department evaluation. Coding Level of Care Code ED Seed Service Advisor for Chg Fwd Exam Comprehensive
[2022-07-01 15:35] VITALS: BP 113/73; PULSE 79; RESP 16; TEMP 36.4; O2SAT 96
--- NOTE | 2022-07-01 15:46 | XRR_ITS ---
PROCEDURE INFORMATION: Exam: XR Chest Exam date and time: 07/01/2022 4:00 PM Age: 47 years old Clinical indication: Shortness of breath; Patient HX: Left leg swelling and pain x 2 days; Additional info: SOB TECHNIQUE: Imaging protocol: Radiologic exam of the chest. Views: 1 view. COMPARISON: CR XR chest 1V portable [id number] 06/27/2022 10:45 AM FINDINGS: Lungs: Bibasilar atelectasis versus minimal infiltrate. Pleural spaces: Unremarkable. No pleural effusion. No pneumothorax. Heart/Mediastinum: Unremarkable. No cardiomegaly. Bones/joints: Unremarkable. XR/XR chest 1V portable [id number] IMPRESSION: Bibasilar atelectasis versus minimal infiltrate.
--- NOTE | 2022-07-01 15:46 | ECG_ITS ---
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 Measurements Intervals [place] Rate: 73 P: 19 [place]: 149 QRS: 38 QRSD: 105 T: 41 QT: 381 QTc: 422 Interpretive Statements SINUS RHYTHM Compared to ECG 06/27/2022 09:23:07 No significant changes Electronically Signed On 07-02-2022 9:32:02 PHOTO MASK PROCESSOR by Alfonso Saldivar M.D. [email or web address]
--- NOTE | 2022-07-01 15:46 | USR_ITS ---
PROCEDURE INFORMATION: Exam: US Duplex Left Lower Extremity Veins, Limited Exam date and time: 07/01/2022 4:27 PM Age: 47 years old Clinical indication: Pain; Leg, lower; Left; Additional info: Lle swelling/pain, HX dvt, off anticoag TECHNIQUE: Imaging protocol: Real-time duplex ultrasound of the Left extremity with 2-D meneses scale, color Doppler flow and spectral waveform analysis including responses to compression and other maneuvers (when performed) with image documentation. Limited exam focused on the left lower extremity veins. COMPARISON: No relevant prior studies available. FINDINGS: Left deep veins: Suspected chronic nonocclusive popliteal vein deep venous thrombosis. Left superficial veins: Unremarkable. Saphenofemoral junction is patent without thrombus. Soft tissues: Subcutaneous edema in the calf. US/CV venous duplex [facility] [id number] IMPRESSION: 1. Suspected chronic nonocclusive popliteal vein deep venous thrombosis. 2. Subcutaneous edema in the calf.
[2022-07-01 16:12] LABS: Basophils # 0.1 10^3/uL (0.0-0.1); Eosinophils # 0.8 10^3/uL (0.0-0.8); Eosinophils % 9.2 %; Hemoglobin 13.5 g/dL (11.7-16.6); Lymphocytes # 2.8 10^3/uL (0.8-4.8); Lymphocytes % 32.7 %; Mean Corpuscular HGB Conc 32.9 g/dL (30.0-36.0); Mean Corpuscular Hemoglobin 34.7 pg (28.0-34.0); Mean Corpuscular Volume 105.4 fl (80-94); Mean Platelet Volume 10.9 fL (7.4-10.4); Monocytes # 0.9 10^3/uL (0.2-0.9); Monocytes % 10.5 %; Neutrophils # 3.92 10^3/uL (1.8-7.7); Neutrophils % 45.7 %; Nucleated Red Blood Cells % 0 %; Platelet Count 211 10^3/cmm (130-400); Red Blood Count 3.89 10^6/uL (4.1-5.3); Red Cell Distribution Width 16.3 % (12.1-15.1); White Blood Count 8.6 10^3/uL (4.0-10.0)
[2022-07-01] MEDS: acetaminophen 500 mg Tablet 1000 MG PO (16:23)
[2022-07-01] MEDS: ketorolac 30 mg/mL INJ 15 MG IVP (16:23)
[2022-07-01 16:51] LABS: Alanine Aminotransferase 47 U/L (0-41); Albumin Level 3.9 g/dL (3.5-5.2); Alkaline Phosphatase 94 U/L (40-130); Anion Gap 17.2 (5-19); Aspartate Amino Transferase 39 U/L (0-40); Blood Urea Nitrogen 6 mg/dL (6-20); Carbon Dioxide 22 mmol/L (22-29); Chloride 102 mmol/L (98-107); Glomerular Filtration Rate 90.1 mL/min (90-130); Glucose 139 mg/dL (65-115); NT Pro B Type Natriuretic Pept 250 pg/mL (0-125); Osmolality Calculated 284 mOsm/kg (285-295); Potassium 4.2 mmol/L (3.5-5.1); Sodium 137 mmol/L (136-145); Total Bilirubin 0.2 mg/dL (0.15-1.2); Total Protein 6.9 g/dL (6.6-8.7)
[2022-07-01 17:18] LABS: Rapid Strep A Test Negative (Negative)
[2022-07-01 18:33] VITALS: BP 129/88; PULSE 89; RESP 18; O2SAT 99
== END 2022-07-01 18:35 | disposition home or self-care (01) ==
PROVIDERS: Emergency Provider Emergency Medicine
DX: I82.502 Chronic embolism and thrombosis of unspecified deep veins of left lower extremity (principal); J44.9 Chronic obstructive pulmonary disease, unspecified; E78.5 Hyperlipidemia, unspecified; I10 Essential (primary) hypertension; F17.210 Nicotine dependence, cigarettes, uncomplicated
CPT/HCPCS: 71045; 80053; 83880; 85025; 87081; 87880; 93005; 93971; 96374; 99285; J1885

== ENCOUNTER 2022-07-10 11:08 | Emergency (ER) | payer MEDICAID, SELFPAY ==
[2022-07-10 11:28] VITALS: BP 139/87; PULSE 76; RESP 18; TEMP 36.7; O2SAT 97; BMI 31.3
--- NOTE | 2022-07-10 11:58 | USCV_ITS ---
Miki Szymanski Age: 47 Gender: M : 1975 Exam Date: 07/10/2022 12:41 Ordering Phys: Chaim Abad Technologist: Joselito Leavitt Exam Location: [facility] [place]_ Indication: chronic dvt lt leg new swelling and pain PROCEDURES: Venous duplex imaging was performed in only the left lower extremity. The following venous structures were evaluated: common femoral vein, profunda vein, proximal portion of the greater saphenous vein, superficial femoral vein, and the popliteal vein. In addition, the posterior tibial and peroneal trunk were evaluated. FINDINGS: Nonocclusive left femoral vein and popliteal vein chronic appearing DVT. No progression. CONCLUSIONS Chronic appearing, non occlusive left DVT. Dr. Amanda Hernandez DO (Electronically Signed) Final Date: 10 July 2022 16:09 S
--- NOTE | 2022-07-10 11:59 | ED_ITS ---
Documented by User: CITLALI Hughes 07/11/22 21:17 HPI - Extremity Problem General: Chief complaint: Extremity Problem,Nontraumatic Stated complaint: leg swelling Time Seen by Provider: 07/10/22 11:39 History of Present Illness: Patient is a 47-year-old male comes to the ED with left leg swelling. Patient was seen here in the ED for same complaint back on July 01. Patient has a history of blood clots in his on Eliquis daily. He is currently being treated at [facility] for alcohol detox program. He states that little over 2 weeks ago he started the program. He was off of his Eliquis for couple days at that time. He then was started back up on his Eliquis but instead of taking it twice daily they switched his dose to once daily while at [facility]. For the past 2 weeks these started having worsening left leg swelling and pain. He rates the pain currently a 10 out of 10. Denies any chest pain, shortness of breath or hemoptysis. Associated symptoms: Deny chest pain, fever(s) or rash Review of Systems Const: Denies: fever(s), chills or fatigue Eyes: Denies: change in vision or eye discomfort ENMT: Denies: throat pain, odynophagia, nasal discharge or nasal congestion Card: Denies: chest pain, palpitations, edema, swelling of feet/ankles, dyspnea on exertion or orthopnea Resp: Denies: dyspnea, productive cough or non-productive cough GI: Denies: abdominal pain, nausea, vomiting, diarrhea, constipation or hematochezia : Denies: flank pain, difficulty urinating, dysuria or hematuria Musc: Reports: extremity pain (Left leg) and extremity swelling (Left leg); Denies: neck pain or back pain Skin/Breast: Denies: rash or new lesions Neuro: Denies: headache(s), numbness in extremities or weakness in extremities PFS ED PFSH: Medical History Alcohol abuse COPD (chronic obstructive pulmonary disease) Depression DVT (deep venous thrombosis) GERD (gastroesophageal reflux disease) Hyperlipidemia Hypertension No pertinent family history Family History Other Cancer Social History Smoking and tobacco status: current every day smoker Alcohol intake: current Physical Exam Const: COMMON NORMALS: no acute distress, patient oriented x3 and alert HENMT: COMMON NORMALS: normocephalic HEAD & SCALP: normocephalic MOUTH: Normal oral and palatal mucosa present THROAT: posterior oropharynx normal and uvula midline Neck/C-Spine: COMMON NORMALS: supple GENERAL: Yes normal visual inspection Resp: COMMON NORMALS: normal respiratory effort, No retractions, No use of accessory muscles and clear to auscultation bilaterally AUSCULTATION: clear to auscultation bilaterally Cardio: COMMON NORMALS: regular rate, regular rhythm, S1 normal heart sound present, S2 normal heart sound present, No gallops present (Cardio), No clicks present (Cardio), No murmurs present (Cardio) and Peripheral pulses 2+ throughout RATE: regular rate RHYTHM: regular rhythm HEART SOUNDS: S1 normal heart sound present and S2 normal heart sound present PERIPHERAL PULSES: Peripheral pulses 2+ throughout GI: COMMON NORMALS: Normal to inspection, nondistended, normoactive bowel sounds present, Soft to palpation, non-tender and no masses PALPATION: Yes Soft to palpation : COMMON NORMALS: Yes no CVA tenderness BLADDER/KIDNEY EXAM: Yes no CVA tenderness Back/Pelvis: COMMON NORMALS: no CVA tenderness Extremity: GENERAL: Yes calf tenderness (Left leg) and Yes edema (2+ pitting edema on left leg-foot to thigh) OTHER: Left lower leg?he does have some erythema, warmth and tenderness of the skin just superior to the ankle which could be due to cellulitis. Neuro: COMMON NORMALS: patient oriented x3 SENSORIUM/ORIENTATION: Yes alert GAIT: Yes Normal gait present Skin: GENERAL SKIN EXAM: dry skin Course Vital Signs: Vital signs: Vital Signs Temperature 98.0 F 07/10/22 11:28 Pulse Rate 67 07/10/22 14:49 Respiratory Rate 16 07/10/22 17:18 Blood Pressure 131/74 07/10/22 14:49 Pulse Oximetry 98 07/10/22 14:49 Oxygen Delivery Me thod 07/10/22 14:49 MDM - Extremity (Nontraumatic) Medical Decision Making Patient is a 47-year-old male comes to the ED with left leg swelling. Patient was seen here in the ED for same complaint back on July 01. Patient has a history of blood clots in his on Eliquis daily. He is currently being treated at [facility] for alcohol detox program. He states that little over 2 weeks ago he started the program. He was off of his Eliquis for couple days at that time. He then was started back up on his Eliquis but instead of taking it twice daily they switched his dose to once daily while at [facility]. For the past 2 weeks these started having worsening left leg swelling and pain. He rates the pain currently a 10 out of 10. Denies any chest pain, shortness of breath or hemoptysis. Vitals are stable. He has some left calf tenderness along with 2+ pitting edema of left lower leg. he does have some erythema, warmth and tenderness of the skin just superior to the ankle which could be due to cellulitis. The ultrasound venous duplex of left lower extremity showed chronic DVT that is unchanged from last ultrasound done back on July 01. Patient was stable for discharge home and diagnosed with a chronic DVT and cellulitis. He was discharged home with a prescription for Keflex and told to start taking his Eliquis twice a day instead of once a day. Follow-up with PCP within the next week for reevaluation. Strict return to ED precautions given. Patient understood and agreed with plan. I discussed case with Dr. Armenta and he agreed with plan. Discharge Plan Discharge Patient Disposition: Home Clinical Impression: Cellulitis of left leg Deep vein thrombosis of lower extremity Qualifiers: Affected thrombotic vein of extremity: femoral Chronicity: chronic Laterality: left Qualified Code(s): I82.512 - Chronic embolism and thrombosis of left femoral vein Condition: Stable Prescriptions: New cephalexin 500 mg capsule 500 mg PO Q6H 7 Days Qty: 28 0RF No Action pantoprazole 40 mg tablet,delayed release (DR/EC) 40 mg PO DAILY clonidine HCl 0.1 mg Tablet 0.1 mg PO BID PRN (Reason: Anxiety) hydroxyzine pamoate 50 mg Capsule 50 mg PO TID PRN (Reason: Anxiety) simvastatin 40 mg tablet 40 mg PO BEDTIME ondansetron 8 mg Tablet,Disintegrating 8 mg PO Q8H PRN (Reason: Nausea) gabapentin 300 mg Capsule 300 mg PO TID ergocalciferol (vitamin D2) 1,250 mcg (50,000 unit) capsule 50,000 unit PO Q7D Rx Instructions: Weekly on Mondays escitalopram oxalate 5 mg tablet 10 mg PO DAILY quetiapine 50 mg Tablet 50 - 100 mg PO BEDTIME PRN (Reason: Sleep) budesonide-formoterol [Symbicort] 160-4.5 mcg/actuation HFA aerosol inhaler 2 puff INHALATION BID levocetirizine 5 mg tablet 5 mg PO DAILY PRN (Reason: Allergy Symptoms) Eliquis 5 mg tablet 5 mg PO DAILY Discharge Orders: Discharge ED (Routine); Ordered 07/10/22 Ordered By: Chaim Abad Discharge Diet: Regular Discharge Activity: Limit activity as instructed Patient Instructions: Cellulitis (ED), Deep Vein Thrombosis (ED) Activity Restrictions/Additional Instructions: Follow-up with medical provider as directed in the next 5 to 7 days for reevaluation. Patient needs to go back to taking 5 mg of Eliquis twice a day. Take medications as prescribed. Return to the ER or your medical provider if condition worsens. Please read and understand discharge instructions. Thank you for choosing [facility] for your healthcare needs today. Caitlin garrett realize this is an emergency room and that we are providing you with a medical screening exam and this may not be complete and all inclusive of all the testing and or work up that you may need to determine your ailment or severity of your illness. It is very important that you follow up as instructed or that you return to the Emergency Department should you have concerns or if your condition changes or worsens in any way. Stand Alone Forms: Work/School Release Coding Level of Care Code ED [employer] for [facility] Fwd Exam Comprehensive Documented by User: Abdiel Armenta DO 07/12/22 06:08 HPI - Extremity Problem General: Chief complaint: Extremity Problem,Nontraumatic Stated complaint: leg swelling Time Seen by Provider: 07/10/22 11:39 PFSH ED PFSH: Medical History Alcohol abuse COPD (chronic obstructive pulmonary disease) Depression DVT (deep venous thrombosis) GERD (gastroesophageal reflux disease) Hyperlipidemia Hypertension No pertinent family history Family History Other Cancer Social History Smoking and tobacco status: current every day smoker Alcohol intake: current Course Vital Signs: Vital signs: Vital Signs Temperature 98.0 F 07/10/22 11:28 Pulse Rate 67 07/10/22 14:49 Respiratory Rate 16 07/10/22 17:18 Blood Pressure 131/74 07/10/22 14:49 Pulse Oximetry 98 07/10/22 14:49 Oxygen Delivery Me thod 07/10/22 14:49 MDM - Extremity (Nontraumatic) Medical Decision Making Patient is a 47-year-old male comes to the ED with left leg swelling. Patient was seen here in the ED for same complaint back on July 01. Patient has a history of blood clots in his on Eliquis daily. He is currently being treated at [facility] for alcohol detox program. He states that little over 2 weeks ago he started the program. He was off of his Eliquis for couple days at that time. He then was started back up on his Eliquis but instead of taking it twice daily they switched his dose to once daily while at [facility]. For the past 2 weeks these started having worsening left leg swelling and pain. He rates the pain currently a 10 out of 10. Denies any chest pain, shortness of breath or hemoptysis. Vitals are stable. He has some left calf tenderness along with 2+ pitting edema of left lower leg. he does have some erythema, warmth and tenderness of the skin just superior to the ankle which could be due to cellulitis. The ultrasound venous duplex of left lower extremity showed chronic DVT that is unchanged from last ultrasound done back on July 01. Patient was stable for discharge home and diagnosed with a chronic DVT and cellulitis. He was discharged home with a prescription for Keflex and told to start taking his Eliquis twice a day instead of once a day. Follow-up with PCP within the next week for reevaluation. Strict return to ED precautions given. Patient understood and agreed with plan. I discussed case with Dr. Armenta and he agreed with plan. Chart reviewed and patient discussed with midlevel. Agree with assessment and plan. Discharge Plan Discharge Patient Disposition: Home Clinical Impression: Cellulitis of left leg Deep vein thrombosis of lower extremity Qualifiers: Affected thrombotic vein of extremity: femoral Chronicity: chronic Laterality: left Qualified Code(s): I82.512 - Chronic embolism and thrombosis of left femoral vein Condition: Stable Prescriptions: New cephalexin 500 mg capsule 500 mg PO Q6H 7 Days Qty: 28 0RF No Action pantoprazole 40 mg tablet,delayed release (DR/EC) 40 mg PO DAILY clonidine HCl 0.1 mg Tablet 0.1 mg PO BID PRN (Reason: Anxiety) hydroxyzine pamoate 50 mg Capsule 50 mg PO TID PRN (Reason: Anxiety) simvastatin 40 mg tablet 40 mg PO BEDTIME ondansetron 8 mg Tablet,Disintegrating 8 mg PO Q8H PRN (Reason: Nausea) gabapentin 300 mg Capsule 300 mg PO TID ergocalciferol (vitamin D2) 1,250 mcg (50,000 unit) capsule 50,000 unit PO Q7D Rx Instructions: Weekly on Mondays escitalopram oxalate 5 mg tablet 10 mg PO DAILY quetiapine 50 mg Tablet 50 - 100 mg PO BEDTIME PRN (Reason: Sleep) budesonide-formoterol [Symbicort] 160-4.5 mcg/actuation HFA aerosol inhaler 2 puff INHALATION BID levocetirizine 5 mg tablet 5 mg PO DAILY PRN (Reason: Allergy Symptoms) Eliquis 5 mg tablet 5 mg PO DAILY Discharge Orders: Discharge ED (Routine); Ordered 07/10/22 Ordered By: Chaim Abad Discharge Diet: Regular Discharge Activity: Limit activity as instructed Patient Instructions: Cellulitis (ED), Deep Vein Thrombosis (ED) Activity Restrictions/Additional Instructions: Follow-up with medical provider as directed in the next 5 to 7 days for reevaluation. Patient needs to go back to taking 5 mg of Eliquis twice a day. Take medications as prescribed. Return to the ER or your medical provider if condition worsens. Please read and understand discharge instructions. Thank you for choosing [facility] for your healthcare needs today. Please realize this is an emergency room and that we are providing you with a medical screening exam and this may not be complete and all inclusive of all the testing and or work up that you may need to determine your ailment or severity of your illness. It is very important that you follow up as instructed or that you return to the Emergency Department should you have concerns or if your condition changes or worsens in any way. Stand Alone Forms: Work/School Release Coding Level of Care Code ED [employer] for [employer] Fwd Exam Comprehensive
[2022-07-10 12:35] VITALS: RESP 16
[2022-07-10] MEDS: morphine 4 mg/mL SDV 1 mL IM (12:35)
[2022-07-10 14:20] VITALS: RESP 17
[2022-07-10] MEDS: oxyCODONE-APAP 5-325 mg Tablet 1 TAB PO ×2 (14:20→17:18)
[2022-07-10 14:49] VITALS: BP 131/74; PULSE 67; RESP 17; O2SAT 98
--- NOTE | 2022-07-10 15:52 | PC.PHAR ---
Addendum entered by Jacqui Lane 07/10/22 16:27: sylvia nurse from [facility] states the pt was having rectal bleeding and states the eliquis was changed to 5mg daily-notes are made in the pharmacy comments Original Note: sylvia nurse from [facility] will fax med list
[2022-07-10 17:18] VITALS: RESP 16
== END 2022-07-10 17:10 | disposition home or self-care (01) ==
PROVIDERS: Emergency Provider Physician Assistant
DX: L03.116 Cellulitis of left lower limb (principal); M79.89 Other specified soft tissue disorders; Z86.718 Personal history of other venous thrombosis and embolism; Z79.01 Long term (current) use of anticoagulants
CPT/HCPCS: 93971; 96372; 99284; J2270